=== PATIENT | female | born 1985 | race Caucasian/White ===

== ENCOUNTER 2016-05-03 14:06 | Emergency (ER) | payer MEDICAID ==
[2016-05-03] MEDS: HYDROmorphone 0.5 MG/0.5 ML Syringe IVPUSH ONE ×2 (14:45→15:25)
[2016-05-03] MEDS: Ondansetron 4 MG/2 ML SDV IVPUSH ONE ×2 (14:46→15:25)
--- NOTE | 2016-05-03 14:48 | EDM.PDOC ---
[id number]: VOMITING/ABD PAIN Time Seen by Provider: 05/03/16 14:30 Source: Reports: Patient, Family History Limitations: Reports: No limitations - History of Present Illness INITIAL COMMENTS - FREE TEXT/NARRATIVE: 30-year-old female who was feeling well until 4 hours ago when she started feeling poorly with some nausea at work. They sent her home and for the next 2 hours she vomited several times and developed diarrhea. Now she is having abdominal cramping and significant discomfort. She has a chronic narcotic addiction history and is on methadone. Location: generalized Quality: Reports: cramping Severity: moderate Context: Denies: sick contact, bad/questionable food, recent surgery Associated Symptoms (-Female): Reports: diarrhea, malaise, nausea/vomiting. 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 Denies: fever, chills HEENT: Reports: No symptoms Respiratory: Denies: Shortness of Breath, Cough Cardiovascular: Denies: Chest pain GI/Abdominal: Reports: Abdominal pain, Diarrhea, Nausea, Vomiting : Reports: no symptoms Psychiatric: Reports: Anxiety ED EXAM, GI/ABD - Physical Exam Exam: See Below Exam Limited By: No limitations General Appearance: alert, moderate distress (Looks very uncomfortable, pain is 10 out of 10) Eyes: bilateral: normal appearance (No jaundice) Respiratory/Chest: no respiratory distress GI/Abdominal: soft, tenderness (She reacts with tenderness and moderate guarding with palpation across the upper abdomen) Neurological: alert, oriented Psychiatric: anxious Skin Exam: Warm, Dry Course - Vital Signs Last Recorded V/S: Last Vital Signs Temp 97.5 F 05/03/16 15:26 Pulse 126 H 05/03/16 15:26 Resp 16 05/03/16 15:26 BP 132/90 05/03/16 15:26 Pulse Ox 99 05/03/16 15:26 - Orders/Labs/Meds Labs: Laboratory Tests 05/03/16 05/03/16 05/03/16 Range/Units 14:11 14:11 14:11 WBC 13.7 H (4.5-11.0) K/uL RBC 5.27 (3.30-5.50) M/uL Hgb 15.7 H (12.0-15.0) g/dL Hct 44.4 (36.0-48.0) % MCV 84 (80-98) fL MCH 30 (27-31) pg MCHC 35 (32-36) % Plt Count 290 (150-400) K/uL Neut % (Auto) 87 H (36-66) % Lymph % (Auto) 10 L (24-44) % [place] % (Auto) 3 (2-6) % Eos % (Auto) 0 L (2-4) % Baso % (Auto) 0 (0-1) % Sodium 141 (140-148) mmol/L Potassium 4.8 (3.6-5.2) mmol/L Chloride 101 (100-108) mmol/L Carbon Dioxide 23 (21-32) mmol/L Anion Gap 16.9 H (5.0-14.0) mmol/L BUN 9 (7-18) mg/dL Creatinine 0.9 (0.6-1.0) mg/dL Est Cr Clr Drug Dosing 70.98 mL/min Estimated GFR (MDRD) > 60 (>60) Glucose 111 H (74-106) mg/dL Calcium 9.4 (8.5-10.1) mg/dL Total Bilirubin 0.5 (0.2-1.0) mg/dL AST 36 (15-37) U/L ALT 29 (12-78) U/L Alkaline Phosphatase 28 L (46-116) U/L Total Protein 8.5 H (6.4-8.2) g/dL Albumin 3.8 (3.4-5.0) g/dL Globulin 4.7 H (2.3-3.5) g/dL Albumin/Globulin Ratio 0.8 L (1.2-2.2) Amylase 62 (25-115) U/L Lipase 95 (73-393) U/L Meds: Medications Discontinued Medications Generic Name Dose Route Start Last Admin Trade Name Freq PRN Reason Stop Dose Admin Hydromorphone HCl 0.5 mg 05/03/16 14:39 05/03/16 15:25 Dilaudid IVPUSH 05/03/16 14:40 Not Given ONETIME ONE Hydromorphone HCl 1 mg 05/03/16 14:56 05/03/16 15:06 Dilaudid IM 05/03/16 14:57 1 mg ONETIME ONE Administration Sodium Chloride 1,000 mls @ 500 mls/hr 05/03/16 15:00 Normal Saline IV ASDIRECTED [facility] Ondansetron HCl 4 mg 05/03/16 14:39 05/03/16 15:25 Zofran IVPUSH 05/03/16 14:40 Not Given ONETIME ONE Ondansetron HCl 4 mg 05/03/16 14:56 05/03/16 15:06 Zofran Odt PO 05/03/16 14:57 4 mg ONETIME ONE Administration - Re-Assessments/Exams Free Text/Narrative Re-Assessment/Exam: 05/03/16 14:47 An IV was started which was very difficult due to the traumatic history to her veins. 0.5 mg of Dilaudid along with 4 mg of Zofran IV were given. She was also given normal saline at 500 mL an hour. Amylase, lipase, CBC and CMP were obtained. 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 She was given 1 mg of Dilaudid IM along with 4 mg of ODT Zofran. She was allowed to take sips of water pending the lab results. The medications did help her cramping. 05/03/16 16:00 After labs returned the patient was feeling much better, was more comfortable. White count was slightly elevated at 13.7 and all the rest of her labs were reassuring. Amylase lipase and liver enzymes were normal. I encouraged the patient to increase her diet as tolerated he can return in the next one to 2 days if worsening. Departure - Departure Time of Disposition: 16:13 Disposition: Home, Self-Care 01 Condition: good Clinical Impression: Gastroenteritis Instructions: Viral Gastroenteritis, Adult, [id number] Referrals: Carol Inman PA [Primary Care Provider] - Forms: ED Department Discharge Care Plan Goals: Rest today, increase diet as tolerated. Concentrating on fluids initially. Return any time if worsening or concerns, or consider rechecking in 2 days if not significantly improving
[2016-05-03] MEDS ORDERED: Ondansetron 4 MG Tab.DIS PO ONE (14:56)
[2016-05-03] MEDS ORDERED: HYDROmorphone 1 MG/ML Syringe IM ONE (14:56)
[2016-05-03] MEDS ORDERED: Sodium Chloride 0.9% 1,000 ML IV SCH (15:00)
[2016-05-03 15:27] VITALS: BP 132/90
== END 2016-05-03 16:13 | disposition home or self-care (01) ==
LOC: JP.ED 14:06
DX: K52.9 Noninfective gastroenteritis and colitis, unspecified (principal); F17.210 Nicotine dependence, cigarettes, uncomplicated; Z91.040 Latex allergy status; Z88.0 Allergy status to penicillin; Z79.899 Other long term (current) drug therapy
CPT/HCPCS: 36415; 80053; 82150; 83690; 85025; 96361; 96372; 96374; 96375; 99284; A9270; J1170; J2405

== ENCOUNTER 2016-05-03 23:34 | Emergency (ER) | payer MEDICAID ==
[2016-05-03 23:53] VITALS: BP 118/70
[2016-05-04] MEDS ORDERED: HYDROmorphone 1 MG/ML Syringe IM ONE ×2 (00:09→01:26)
--- NOTE | 2016-05-04 01:25 | EDM.PDOC ---
ED HPI GI/ABDOMINAL - General Chief Complaint: Abdominal Pain Stated Complaint: STOMACH PAIN Time Seen by Provider: 05/03/16 23:59 Source: Reports: Patient History Limitations: Reports: No limitations - History of Present Illness INITIAL COMMENTS - FREE TEXT/NARRATIVE: History of present illness: [30-year-old female was seen earlier today with abdominal pain. I have reviewed those records. She presents now again with the same abdominal pain. She has generalized crampy abdominal pain throughout her abdomen and it is hard for her to localize her pain. She's had no fevers or chills nausea vomiting constipation diarrhea or dysuria.] Review of systems: As per history of present illness and below otherwise all systems reviewed and negative. Past medical history: As per history of present illness and as reviewed below otherwise noncontributory. Surgical history: As per history of present illness and as reviewed below otherwise noncontributory. Social history: No reported history of drug or alcohol abuse. Family history: As per history of present illness and as reviewed below otherwise noncontributory. Physical exam: HEENT: Atraumatic, normocephalic, pupils reactive, negative for conjunctival pallor or scleral icterus, mucous membranes moist, throat clear, neck supple, nontender, trachea midline. Lungs: Clear to auscultation Heart: S1S2, regular Abdomen: She has generalized tenderness to palpation throughout bowel sounds are present. No masses appreciated. Pelvis: Stable nontender. Genitourinary: Deferred. Rectal: Deferred. Extremities: Without cyanosis clubbing or edema Neuro: Awake, alert, oriented.Exam nonfocal. Diagnostics: [CBC complete metabolic panel and abdominal CT were undertaken and the most significant finding is a diffusely increased attenuation in the gallbladder. This is of uncertain significance but perhaps could be a source of her pain.] Therapeutics: [She was given Dilaudid 1 mg IM and this resolved her pain] Impression: [Generalized abdominal pain] Plan: [I am recommending she follow up with her primary care provider in consideration of a gallbladder ultrasound I think would be in order.] Definitive disposition and diagnosis as appropriate pending reevaluation and review of above. 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: Musculoskeletal History: Reports: Other (see below) Other Musculoskeletal History: chronic pain left leg Psychiatric History: Reports: Addiction - Infectious Disease History Infectious Disease History: Reports: Chicken pox Social & Family History - Tobacco Use Smoking Status *Q: Current Every Day Smoker Years of Tobacco use: 20 Packs/Tins Daily: 0.2 - Caffeine Use Caffeine Use: Reports: Coffee, Energy drinks, Soda, Tea - Recreational Drug Use Recreational Drug Use: Yes Drug Use in Last 12 Months: Yes Recreational Drug Type: Reports: Other (see below) ED ROS GENERAL - Review of Systems Review Of Systems: ROS reveals no pertinent complaints other than HPI. ED EXAM, GI/ABD - Physical Exam Exam: See Below Course - Vital Signs Last Recorded V/S: Last Vital Signs Temp 37.6 C 05/03/16 23:50 Pulse 128 H 05/03/16 23:50 Resp 20 05/03/16 23:50 BP 118/70 05/03/16 23:50 Pulse Ox 98 05/03/16 23:50 - Orders/Labs/Meds Orders: Active Orders 24 hr Category Date Time Status Abdomen Pelvis wo Cont [CT] Stat Exams 05/04/16 00:10 Taken HCG QUALITATIVE,URINE [URCHEM] Stat Lab 05/04/16 00:11 Uncollected UA W/MICROSCOPIC [URIN] Stat Lab 05/04/16 00:11 Uncollected Labs: Laboratory Tests 05/04/16 05/04/16 Range/Units 00:11 00:32 WBC 12.3 H (4.5-11.0) K/uL RBC 5.21 (3.30-5.50) M/uL Hgb 15.2 H (12.0-15.0) g/dL Hct 43.9 (36.0-48.0) % MCV 84 (80-98) fL MCH 29 (27-31) pg MCHC 35 (32-36) % Plt Count 386 (150-400) K/uL Neut % (Auto) 89 H (36-66) % Lymph % (Auto) 9 L (24-44) % [place] % (Auto) 3 (2-6) % Eos % (Auto) 0 L (2-4) % Baso % (Auto) 0 (0-1) % Sodium 137 L (140-148) mmol/L Potassium 4.1 (3.6-5.2) mmol/L Chloride 100 (100-108) mmol/L Carbon Dioxide 21 (21-32) mmol/L Anion Gap 20.1 H (5.0-14.0) mmol/L BUN 9 (7-18) mg/dL Creatinine 0.8 (0.6-1.0) mg/dL Est Cr Clr Drug Dosing TNP Estimated GFR (MDRD) > 60 (>60) Glucose 114 H (74-106) mg/dL Calcium 9.2 (8.5-10.1) mg/dL Total Bilirubin 0.3 (0.2-1.0) mg/dL AST 26 (15-37) U/L ALT 28 (12-78) U/L Alkaline Phosphatase 26 L (46-116) U/L C-Reactive Protein 1.59 H (0.0-0.3) mg/dL Total Protein 8.7 H (6.4-8.2) g/dL Albumin 3.7 (3.4-5.0) g/dL Globulin 5.0 H (2.3-3.5) g/dL Albumin/Globulin Ratio 0.7 L (1.2-2.2) Meds: Medications Discontinued Medications Generic Name Dose Route Start Last Admin Trade Name Freq PRN Reason Stop Dose Admin Hydromorphone HCl 1 mg 05/04/16 00:09 05/04/16 00:21 Dilaudid IM 05/04/16 00:10 1 mg ONETIME ONE Administration Departure - Departure Time of Disposition: 01:24 Disposition: Home, Self-Care 01 Condition: good Clinical Impression: Generalized abdominal pain, Abnormal CT scan, gallbladder Forms: ED Department Discharge Additional Instructions: Please followup with your primary care provider and discussed abdominal pain with them. He may benefit from an ultrasound. And if it is felt that your gallbladder may be the source of your pain you may have to have a cholecystectomy - My Orders Last 24 Hours: My Active Orders 05/04/16 00:10 Abdomen Pelvis wo Cont [CT] Stat 05/04/16 00:11 HCG QUALITATIVE,URINE [URCHEM] Stat UA W/MICROSCOPIC [URIN] Stat - Assessment/Plan Last 24 Hours: My Active Orders 05/04/16 00:10 Abdomen Pelvis wo Cont [CT] Stat 05/04/16 00:11 HCG QUALITATIVE,URINE [URCHEM] Stat UA W/MICROSCOPIC [URIN] Stat
== END 2016-05-04 01:59 | disposition home or self-care (01) ==
LOC: JP.ED 23:34
DX: R10.84 Generalized abdominal pain (principal); F17.210 Nicotine dependence, cigarettes, uncomplicated; Z88.0 Allergy status to penicillin; Z91.040 Latex allergy status; Z79.899 Other long term (current) drug therapy
CPT/HCPCS: 36415; 74176; 80053; 85025; 86140; 96372; 99284; J1170

== ENCOUNTER 2016-11-23 06:08 | Day surgery (SDC) | payer MEDICAID ==
[2016-11-23] MEDS ORDERED: Lidocaine 1% with EPINEPHrine 1:100,000 50 ML MDV ONE (06:43)
[2016-11-23] MEDS ORDERED: Bupivacaine 0.5% 50 ML MDV ONE (06:43)
[2016-11-23] MEDS ORDERED: Sodium Chloride 0.9% 1,000 ML IV SCH (07:00)
[2016-11-23] MEDS ORDERED: Glycopyrrolate 0.2 MG/ML 5 ML MDV ONE (07:18)
[2016-11-23] MEDS ORDERED: Ondansetron 4 MG/2 ML SDV ONE (07:18)
[2016-11-23] MEDS ORDERED: Succinylcholine 200 MG/10 ML MDV ONE (07:18)
[2016-11-23] MEDS ORDERED: Dexamethasone 4 MG/ML SDV ONE (07:18)
[2016-11-23] MEDS ORDERED: Rocuronium 50 MG/5 ML Vial ONE (07:18)
[2016-11-23] MEDS ORDERED: fentaNYL 250 MCG/5 ML SDV ONE (07:18)
[2016-11-23] MEDS ORDERED: Neostigmine Methylsulfate 1 MG/ML 5 ML Syringe ONE (07:18)
[2016-11-23] MEDS ORDERED: Propofol 200 MG/20 ML SDV ONE (07:18)
[2016-11-23] MEDS ORDERED: metroNIDAZOLE/Normal Saline 500 MG in Premix Bag 1 BAG IV ONE (08:00)
[2016-11-23] MEDS ORDERED: Midazolam 1 MG/ML 2 ML SDV ONE (08:24)
[2016-11-23] MEDS ORDERED: Ketorolac 60 MG/2 ML SDV ONE (09:00)
[2016-11-23] MEDS ORDERED: diphenhydrAMINE 50 MG/ML SDV IVPUSH PRN (09:11)
[2016-11-23] MEDS ORDERED: Benzocaine/Cetylpyridinium/Menthol Lozenge MUCMEM PRN (09:11)
[2016-11-23] MEDS ORDERED: Zolpidem 5 MG Tab PO PRN (09:11)
[2016-11-23] MEDS ORDERED: Promethazine 25 MG/ML SDV IM PRN (09:11)
[2016-11-23] MEDS ORDERED: Acetaminophen/HYDROcodone 325-5 MG Tab PO PRN (09:20)
[2016-11-23] MEDS: hydrOXYzine HCl 100 MG/2 ML SDV IM PRN ×3 (09:40→18:14)
[2016-11-23] MEDS: Acetaminophen/HYDROcodone 325-10 MG Tab PO PRN ×4 (10:49→23:53)
[2016-11-23] MEDS ORDERED: Methadone 10 MG Tab PO SCH (12:30)
[2016-11-23] MEDS: METHADONE PO SCH ×2 (13:03)
[2016-11-23] MEDS: fentaNYL 100 MCG/2 ML SDV IVPUSH PRN ×2 (13:58→16:10)
--- NOTE | 2016-11-23 15:06 | OR ---
DATE OF PROCEDURE: 11/23/2016 PROCEDURE: Laparoscopic cholecystectomy. PREOPERATIVE DIAGNOSIS: Cholelithiasis and cholecystitis. POSTOPERATIVE DIAGNOSIS: Cholelithiasis and cholecystitis. RISKS: Risks, benefits, alternatives, and limitations including but not limited to infection, bleeding, perforation of abdominal structures, common bile duct injury, cystic duct injury, cystic duct leaks, hematoma, biloma and other risks not listed here were explained to the patient and wished to proceed. ANESTHETIC: General/local. PROCEDURE IN DETAIL: The patient was placed in a supine position. The abdomen was prepped and draped. A supraumbilical curvilinear incision was made with a #15 blade. A Veress needle was used to enter the abdomen without abnormality and drop test was performed without abnormality. An Optiview trocar was inserted after this, and no evidence of enterotomy or injury was noted during entry. An additional 10 mm and two 5 mm ports were entered under direct visualization. The gallbladder was retracted cephalad. The infundibulum was retracted inferolaterally. A significant amount of inflammation associated with gallbladder and its contacting liver was noted. A "clear view" of the gallbladder was eventually obtained with a single pulsatile structure in the gallbladder and a single non-pulsatile structure in the gallbladder. These were clipped x3 and subsequently transected. Photos were taken to show that the clips completely transgressed the ductal structures. The remaining 1/3 of the gallbladder was removed off the gallbladder bed using electrocautery. The gallbladder was delivered with a bag without difficulty. Once this was completed, the liver bed was inspected for abnormal bleeding, which there was none, this was verified 2 times. This was thoroughly irrigated, and the liquid was removed. The air was desufflated. The wound was closed with 3-0 Vicryl and 4-0 Vicryl in interrupted running fashion. Dermabond was applied. The patient tolerated the procedure well. Kareem Taylor MD /[id number]
[2016-11-23] MEDS ORDERED: LORazepam 2 MG/ML MDV IVPUSH ONE (17:00)
[2016-11-23] MEDS ORDERED: Scopolamine 1.5 MG Transdermal Patch TOP ONE (17:47)
[2016-11-23] MEDS: Ondansetron 4 MG Tab.DIS PO PRN (18:04)
[2016-11-24] MEDS: Acetaminophen/HYDROcodone 325-10 MG Tab PO PRN ×2 (04:09→08:16)
[2016-11-24] MEDS: Ondansetron 4 MG Tab.DIS PO PRN ×2 (04:26→09:42)
[2016-11-24 06:59] VITALS: BP 102/58
[2016-11-24] MEDS: METHADONE PO SCH ×2 (08:17)
[2016-11-24] MEDS ORDERED: VERIFY SCOPOLAMINE PATCH TOP SCH (09:00)
--- NOTE | 2016-11-24 11:13 | PN ---
DATE OF SERVICE: 11/24/2016 SUBJECTIVE: The patient is doing well. Pain is well controlled. No nausea, vomiting, shortness of breath, or chest pain. OBJECTIVE: VITAL SIGNS: Stable. Temperature 98.9, blood pressure 124/66, pulse 63, respirations 16, and 98% on room air. CARDIOVASCULAR: Regular rhythm and rate. RESPIRATORY: Lungs are clear to auscultation bilaterally. ABDOMEN: Bowel sounds are positive. Incision is healing well. ASSESSMENT: Status post laparoscopic cholecystectomy. PLAN: The patient will be discharged today. We discussed diet, activity, and followup. See discharge summary for further details. Of note, the patient refused her labs this morning. Therefore, as I discussed with her cystic duct injuries, common bile duct injuries cannot be determined. The patient understands these risks. Kareem Taylor MD /[id number]
--- NOTE | 2016-11-24 11:16 | DISCH ---
DISCHARGE DIAGNOSIS: Status post laparoscopic cholecystectomy. ADDITIONAL COMPLICATIONS DURING THIS HOSPITALIZATION: None. SUMMARY OF HOSPITAL COURSE: A pleasant female who underwent uneventful laparoscopic cholecystectomy. Prior to discharge, her pain is controlled. She had no nausea, vomiting, shortness of breath, or chest pain. The patient is on methadone, and we did discuss the risk of seeking prescription pain medications in combination with methadone and other drugs. I discussed with her and her family the risks of respiratory failure, the signs and symptoms of respiratory failure, drug toxicity, and drug overdose. The patient understands and wishes to proceed. There were also told that if that does develop, they can call 911 immediately. FOLLOWUP: Follow up with Surgery in 7 to 14 days. ACTIVITY: No lifting greater than 30 pounds x30 days. DISCHARGE MEDICATIONS: Please see MAR, but include Percocet for pain.
--- NOTE | 2016-12-06 13:26 | HP ---
DATE OF SERVICE: 11/23/2016 ADDENDUM: The patient is satisfactory for the procedure. Kareem Taylor MD /[id number]
== END 2016-11-24 11:55 | disposition home or self-care (01) ==
LOC: JP.SDS 06:08 → JP.MS 09:11 → JP.SDS 11-24 11:55
PROVIDERS: ATTEND Surgery
DX: K80.10 Calculus of gallbladder with chronic cholecystitis without obstruction (principal); Z88.0 Allergy status to penicillin; Z91.040 Latex allergy status; F17.210 Nicotine dependence, cigarettes, uncomplicated
CPT/HCPCS: 36415; 47562; 82247; 88304; A9270; J0330; J1100; J1885; J2060; J2250; J2405; J2550; J2704; J2710; J3010; J3410; J7040; J7120